=== PATIENT | female | born 1950 | race Caucasian/White ===

== ENCOUNTER 2017-08-14 11:28 | Emergency (ER) | payer BC, OTHER ==
[~2017-08-14 11:28] MED LIST: ALBU8I INH; DILTCD180 PO; FLUT1INH INH; FURO1TAB93 PO; KLOR20TA6 PO; METO100T PO; MONT10TA2 PO; OMEP20TA PO; PROZ20CA11 PO; SPIRCAP INH; Z.0.OXYGENDME NC; [UNRECOGNIZED DRUG - CODE] TOP
[2017-08-14] MEDS ORDERED: IOHEXOL 350 MG/ML 10 ML VIAL (for RAD DIAG) IVCONTRAST ONE (11:29)
[2017-08-14 11:33] VITALS: PULSE 120; RESP 16; TEMP 98.6; O2SAT 92
--- NOTE | 2017-08-14 12:01 | PD ---
HPI Chief Complaint: Respiratory Symptoms Time Seen by Provider: 11:50 Travel History International Travel<30 days: No Contact w/Intl Traveler<30days: No Traveled to known affect area: No History of Present Illness HPI 67 years old female complains of epigastric abdominal pain, shortness of breath. Patient started having epigastric substernal pressure 4 days ago. Patient states that the episodes lasted about 10 hours and resolved completely. Patient denies any pain radiation. Patient denies palpitation, nausea. Patient states that she has intermittent diaphoresis for the past several days. Patient complains of shortness of breath especially with exertion. Patient denies any coughing congestion fever chills. Patient has history of transient atrial fibrillation in the past. Patient was seen in the retail management keyholder's office today, Dr. Christy , and was referred to the ED for evaluation. Patient has history of COPD, CHF, idiopathic cardiomyopathy. Patient was on Cardizem 180 mg in the past. Patient stopped taking it. 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) Coronary Artery Disease: Yes Diabetes: No Diminished Hearing: No Endocrine: No Genitourinary: No Hypertension: Yes Immune Disorder: No Musculoskeletal: Yes Neurologic: Yes (CVA) Psychiatric: No Reproductive: No Respiratory: Yes (COPD) Radiation Therapy: No Sleep Apnea: No Thyroid Disease: No Menopausal: Yes Past Surgical History Gynecologic Surgery: Yes (tubal ligation, thermoablation) Social History Alcohol Use: Yes (occ) Tobacco Use: No (quit 15 years ago ) Substance Use: No Allergies-Medications (Allergen,Severity, Reaction): Coded Allergies: No Known Allergies (Unverified , 04/14/16) Reported Meds & Prescriptions Reported Meds & Active Scripts Active Diltiazem ER 24 HR 180 Mg Gillian 180 Mg PO DAILY Reported Potassium Chloride ER (Potassium Chloride) 20 Meq Tab 20 Meq PO TID Hydrocodone-Acetaminophen 5-325 mg Tab 1 Tab PO Q6H PRN Breo Ellipta Inh (Fluticasone/Vilanterol) 100-25 Mcg/Act Inh 1 Puff INH DAILY Use daily at the same time. Spiriva Handihaler (Tiotropium Inh) 18 Mcg Cap 18 Mcg INH DAILY 1 capsule = 18 mcg Omeprazole 20 Mg Tab 20 Mg PO DAILY Prozac (Fluoxetine HCl) 20 Mg Cap 20 Mg PO BID Lasix (Furosemide) 40 Mg Tab 40 Mg PO TID Metoprolol Tartrate 100 Mg Tab 100 Mg PO BID Review of Systems General / Constitutional: No: Fever Eyes: No: Visual changes HENT: No: Headaches Cardiovascular: No: Chest Pain or Discomfort Respiratory: Positive: Shortness of Breath Gastrointestinal: No: Abdominal Pain Genitourinary: No: Dysuria Musculoskeletal: No: Pain Skin: No Rash Neurologic: No: Weakness Psychiatric: No: Depression Endocrine: No: Polydipsia Hematologic/Lymphatic: No: Easy Bruising Physical Exam Narrative GENERAL: Well-nourished, well-developed patient. SKIN: Focused skin assessment warm/dry. HEAD: Normocephalic. EYES: No scleral icterus. No injection or drainage. NECK: Supple, trachea midline. No JVD or lymphadenopathy. CARDIOVASCULAR: Irregularly irregular rate and rhythm without murmurs, gallops, or rubs. RESPIRATORY: Breath sounds equal bilaterally. No accessory muscle use. GASTROINTESTINAL: Abdomen soft, non-tender, nondistended. MUSCULOSKELETAL: No cyanosis, or edema. BACK: Nontender without obvious deformity. No CVA tenderness. Neurologic exam normal. Data Data Last Documented VS Vital Signs Date Time Temp Pulse Resp B/P (MAP) Pulse Ox O2 Delivery O2 Flow Rate FiO2 08/14/17 13:59 82 18 116/80 (92) 98 Nasal Cannula 2.00 08/14/17 11:33 98.6 Orders Orders Electrocardiogram (08/14/17 12:01) Complete Blood Count With Diff (08/14/17 12:01) Comprehensive Metabolic Panel (08/14/17 12:01) Creatine Kinase (Cpk) (08/14/17 12:01) Troponin I (08/14/17 12:01) B-Type Natriuretic Peptide (08/14/17 12:01) Prothrombin Time / Inr (Pt) (08/14/17 12:01) Act Partial Throm Time (Ptt) (08/14/17 12:01) Thyroid Stimulating Hormone (08/14/17 12:01) Chest, Single Ap (08/14/17 12:01) Iv Access Insert/Monitor (08/14/17 12:01) Ecg Monitoring (08/14/17 12:01) Oximetry (08/14/17 12:01) Ct Pulmonary Angiogram (08/14/17 12:01) Vital Signs (Adult) Q15MX4,Q4H (08/14/17 12:26) Air Shovel Operator / Telemetry NATI.Q8H (08/14/17 12:26) Cardiac Rhythm NATI.Q8H (08/14/17 12:26) Notify Dr: Other (08/14/17 12:26) Diltiazem Inj (Cardizem Inj) (08/14/17 12:30) Diltiazem Inj (Cardizem Inj) (08/14/17 12:30) Iohexol 350 Inj (Omnipaque 350 Inj) (08/14/17 11:29) Diltiazem Cd (Cardizem Cd) (08/14/17 14:30) Bumetanide (Bumetanide) (08/14/17 14:30) Ed Discharge Order (08/14/17 14:33) Labs Laboratory Tests Test 08/14/17 12:15 08/14/17 12:30 White Blood Count 14.0 TH/MM3 Red Blood Count 4.76 MIL/MM3 Hemoglobin 11.5 GM/DL Hematocrit 35.7 % Mean Corpuscular Volume 75.0 FL Mean Corpuscular Hemoglobin 24.1 PG Mean Corpuscular Hemoglobin Concent 32.1 % Red Cell Distribution Width 17.7 % Platelet Count 344 TH/MM3 Mean Platelet Volume 7.6 FL Neutrophils (%) (Auto) 77.7 % Lymphocytes (%) (Auto) 12.8 % Monocytes (%) (Auto) 7.9 % Eosinophils (%) (Auto) 0.8 % Basophils (%) (Auto) 0.8 % Neutrophils # (Auto) 10.8 TH/MM3 Lymphocytes # (Auto) 1.8 TH/MM3 Monocytes # (Auto) 1.1 TH/MM3 Eosinophils # (Auto) 0.1 TH/MM3 Basophils # (Auto) 0.1 TH/MM3 CBC Comment DIFF FINAL Differential Comment Prothrombin Time 10.4 SEC Prothromb Time International Ratio 1.0 RATIO Activated Partial Thromboplast Time 28.5 SEC Blood Urea Nitrogen 9 MG/DL Creatinine 0.71 MG/DL Random Glucose 102 MG/DL Total Protein 7.3 GM/DL Albumin 3.5 GM/DL Calcium Level 8.9 MG/DL Alkaline Phosphatase 77 U/L Aspartate Amino Transf (AST/SGOT) 16 U/L Alanine Aminotransferase (ALT/SGPT) 29 U/L Total Bilirubin 0.5 MG/DL Sodium Level 136 MEQ/L Potassium Level 3.6 MEQ/L Chloride Level 98 MEQ/L Carbon Dioxide Level 27.5 MEQ/L Anion Gap 11 MEQ/L Estimat Glomerular Filtration Rate 82 ML/MIN Total Creatine Kinase 41 U/L Troponin I 0.16 NG/ML Thyroid Stimulating Hormone 3rd Gen 0.703 uIU/ML B-Type Natriuretic Peptide 649 PG/ML MDM Medical Decision Making Medical Screen Exam Complete: Yes Emergency Medical Condition: Yes Interpretation(s) 13 10 PM. Last Impressions Chest X-Ray 08/14/17 1201 Signed Impressions: Service Date/Time: Monday, August 14, 2017 12:30 - CONCLUSION: Normal examination. Kodi Love MD 13 10 PM. CBC WBC 14.0. Hemoglobin 11.5 hematocrit 35.7. MCV 75.0. [address] pulmonary angiogram shows no PE. Pulmonary nodule. Right upper lobe. Differential Diagnosis Differential diagnosis including atrial fibrillation, acute exacerbation of COPD , acute exacerbation of CHF, PE. Narrative Course 67 years old female with transient epigastric abdominal pain, shortness of breath and atrial fibrillation. History of COPD, CHF, atrial fibrillation. Cardizem 15 mg IV given. Cardizem drip started. I spoke with Dr. Christy, patient's retail management keyholder. Advised to begin taking Cardizem 180 mg daily. Follow- up with him in the office. Diagnosis Primary Impression: Atrial fibrillation with RVR Patient Instructions: General Instructions Additional Instructions: Cardizem daily. Follow-up with personal physician. Return if worse. Med/Other Pt SpecificInfo: Existing Med Changed Scripts Diltiazem CD 24 HR (Cardizem CD 24 HR) 180 Mg Caper 180 MG PO DAILY, #30 CAP 0 Refills Prov: Wilian Reyna MD 08/14/17 Diltiazem ER 24 HR (Diltiazem ER 24 HR) 180 Mg Gillian 180 MG PO DAILY, #30 TAB 0 Refills Prov: Wilian Reyna MD 08/14/17 Disposition: 01 DISCHARGE HOME Condition: Stable Wilian Reyna MD Aug 14, 2017 12:01
[2017-08-14] MEDS ORDERED: DILTIAZEM INJ 125 MG in SODIUM CHLORIDE 0.9% INJ 100 ML IV PRN (12:30)
[2017-08-14] MEDS ORDERED: DILTIAZEM HCL 25 MG/5 ML VIAL IV PUSH ONE (12:30)
[2017-08-14 12:42] VITALS: O2SAT 97
--- NOTE | 2017-08-14 12:50 | RADRPT ---
EXAM DATE/TIME: 08/14/2017 12:30 [facility] COMPARISON: CHEST SINGLE AP, April 14, 2016, 13:41. INDICATIONS : Short of breath, sent by MEDICAL HISTORY : Chronic obstructive pulmonary disease. Congestive heart failure. atrial fibrillation SURGICAL HISTORY : None. ENCOUNTER: Initial ACUITY: 1 day PAIN SCORE: 0/10 LOCATION: Bilateral chest FINDINGS: A single view of the chest demonstrates the lungs to be symmetrically aerated without evidence of mas s, infiltrate or effusion. The cardiomediastinal contours are unremarkable. Osseous structures are intact. CONCLUSION: Normal examination. Kodi Love MD on August 14, 2017 at 12:48 Board Certified Radiologist. This report was verified electronically.
[2017-08-14 12:54] LABS: AUTOMATED NEUTROPHIL # 10.8 TH/MM3 (1.8-7.7); BASOPHIL # 0.1 TH/MM3 (0-0.2); BASOPHIL % 0.8 % (0.0-2.0); EOSINOPHIL # 0.1 TH/MM3 (0-0.4); EOSINOPHIL % 0.8 % (0.0-4.0); HEMATOCRIT 35.7 % (35.0-46.0); HEMOGLOBIN 11.5 GM/DL (11.6-15.3); LYMPH % 12.8 % (9.0-44.0); LYMPHOCYTE # 1.8 TH/MM3 (1.0-4.8); MEAN CORPUSCULAR HEMOGLOBIN 24.1 PG (27.0-34.0); MEAN CORPUSCULAR HGB CONC 32.1 % (32.0-36.0); MEAN PLATELET VOLUME 7.6 FL (7.0-11.0); MONO % 7.9 % (0.0-8.0); MONOCYTE # 1.1 TH/MM3 (0-0.9); NEUT % 77.7 % (16.0-70.0); PLATELET COUNT 344 TH/MM3 (150-450); RED BLOOD COUNT 4.76 MIL/MM3 (4.00-5.30); RED CELL DISTRIBUTION WIDTH 17.7 % (11.6-17.2)
[2017-08-14 13:04] LABS: PROTHROMBIN TIME - PATIENT 10.4 SEC (9.8-11.6)
[2017-08-14 13:10] LABS: ALBUMIN 3.5 GM/DL (3.4-5.0); ALT (GPT) 29 U/L (10-53); AST (GOT) 16 U/L (15-37); BICARBONATE 27.5 MEQ/L (21.0-32.0); BLOOD UREA NITROGEN 9 MG/DL (7-18); CALCIUM 8.9 MG/DL (8.5-10.1); CHLORIDE 98 MEQ/L (98-107); CREATININE 0.71 MG/DL (0.50-1.00); GLOMERULAR FILTRATION RATE 82 ML/MIN (>89); GLUCOSE,RANDOM 102 MG/DL (74-106); SODIUM (NA) 136 MEQ/L (136-145)
[2017-08-14 13:20] LABS: ALKALINE PHOSPHATASE 77 U/L (45-117); TOTAL BILIRUBIN ADULT 0.5 MG/DL (0.2-1.0); TOTAL PROTEIN 7.3 GM/DL (6.4-8.2); TROPONIN I 0.16 NG/ML (0.02-0.05)
[2017-08-14 13:59] VITALS: BP 116/80; PULSE 82; RESP 18; O2SAT 98
--- NOTE | 2017-08-14 14:14 | RADRPT ---
EXAM DATE/TIME: 08/14/2017 13:30 [facility] COMPARISON: No previous studies available for comparison. INDICATIONS : Short of breath for three days, embolism. IV CONTRAST: 49 cc Omnipaque 350 (iohexol) IV RADIATION DOSE: 23.80 CTDIvol (mGy) MEDICAL HISTORY : Cardiovascular disease. Hypertension. Chronic obstructive pulmonary disease. SURGICAL HISTORY : None. ENCOUNTER: Initial ACUITY: 3 days PAIN SCALE: 6/10 LOCATION: Bilateral chest TECHNIQUE: Volumetric scanning of the chest was performed using a pulmonary embolism protocol MIP images were re constructed. Using automated exposure control and adjustment of the mA and/or kV according to patien t size, radiation dose was kept as low as reasonably achievable to obtain optimal diagnostic quality images. DICOM format image data is available electronically for review and comparison. Follow-up recommendations for detected pulmonary nodules are based at a minimum on nodule size and pa tient risk factors according to Fleischner Society Guidelines. FINDINGS: PULMONARY ARTERIES: No filling defects are seen in the pulmonary arteries through the segmental level. LUNGS: There is a rounded area of nodular density involving the medial right upper lobe. This measures 2.4 x 1.9 x 1.2 cm. It abuts the lateral wall of the SVC near the confluence. Areas of poor. Pleural trian gle are shaped consolidation consistent with atelectasis seen involving the right middle lobe and kulwant gula. No infiltrates. No bronchiectasis. PLEURAE: There is no pleural thickening or pleural effusion. MEDIASTINUM: The heart is mildly enlarged. No pericardial effusion. Coronary artery atherosclerotic calcifications . Extensive mitral valve calcifications. Aorta and pulmonary arteries are normal in caliber. No adeno kacie. MUSCULOSKELETAL: Within normal limits for patient age. MISCELLANEOUS: The visualized upper abdominal organs demonstrate no acute abnormality. CONCLUSION: 1. No pulmonary emboli. 2. 2.4 x 1.9 x 1.2 cm nodule within the right upper lobe. A short-term followup CT is suggested to do cument stability/resolution. At this point a malignancy cannot be excluded. 3. Atelectasis within the right middle lobe and lingula. 4. Cardiomegaly. 5. Coronary artery atherosclerotic calcifications. Alejandro Catalan Jr., MD on August 14, 2017 at 14:06 Board Certified Radiologist. This report was verified electronically.
[2017-08-14] MEDS ORDERED: BUMETANIDE 1 MG TAB PO ONE (14:30)
[2017-08-14] MEDS ORDERED: DILTIAZEM-CD 180 MG CAP ER PO ONE (14:30)
[2017-08-14] MEDS ORDERED: DILT0.05 PO (14:33)
[2017-08-14] MEDS ORDERED: SPIRCAP INH (14:51)
[2017-08-14] MEDS ORDERED: OMEP20TA93 PO (14:51)
[2017-08-14] MEDS ORDERED: FLUT1INH INH (14:51)
[2017-08-14] MEDS ORDERED: METO100T PO (14:51)
[2017-08-14] MEDS ORDERED: HYDR-3516 PO (14:51)
[2017-08-14] MEDS ORDERED: FURO1TAB60 PO (14:51)
[2017-08-14] MEDS ORDERED: POTA-163 PO (14:51)
[2017-08-14] MEDS ORDERED: PROZ20CA11 PO (14:51)
[2017-08-14] MEDS ORDERED: CARD180C5 PO (14:53)
--- NOTE | 2017-08-14 15:08 | EKG ---
Date Performed: 08/14/2017 Time Performed: 12:19:10 PTAGE: 67 years EKG: ATRIAL FIBRILLATION WITH RAPID VENTRICULAR RESPONSE INCOMPLETE RIGHT BUNDLE BRANCH BLOCK PO SSIBLE RIGHT VENTRICULAR HYPERTROPHY Nonspecific ST and T wave abnormalities ABNORMAL ECG Compared to prior electrocardiogram, rate has increased PREVIOUS TRACING : 04/15/2016 01.56 DOCTOR: Asher Daniels Interpretating Date/Time 08/14/2017 15:07:01
== END 2017-08-14 15:35 | disposition home or self-care (01) ==
LOC: NEPE 11:28
DX: I48.91 Unspecified atrial fibrillation (principal); I11.0 Hypertensive heart disease with heart failure; I50.9 Heart failure, unspecified; I25.10 Atherosclerotic heart disease of native coronary artery without angina pectoris; J44.9 Chronic obstructive pulmonary disease, unspecified; R06.02 Shortness of breath; Z87.891 Personal history of nicotine dependence
CPT/HCPCS: 71010; 71275; 80053; 82550; 83880; 84443; 84484; 85025; 85610; 85730; 93005; 96365; 96366; 99285; Q9967